=== PATIENT | female | born 1955 | race Caucasian/White ===

== ENCOUNTER 2020-07-13 12:16 | Emergency (ER) | payer MEDICARE, OTHER ==
[2020-07-13 12:26] VITALS: RESP 18
[2020-07-13] MEDS ORDERED: ACETAMINOPHEN TAB 500 MG TAB PO STA (12:36)
--- NOTE | 2020-07-13 13:20 | XR ---
EXAMINATION TYPE: XR wrist complete LT DATE OF EXAM: 07/13/2020 CLINICAL HISTORY: pain TECHNIQUE: Frontal, lateral and oblique images of the left wrist are obtained. COMPARISON: None. FINDINGS: There is no acute fracture/dislocation evident. The joint spaces appear within normal jensen its. Cystic degenerative change of the scaphoid. The overlying soft tissue appears unremarkable. IMPRESSION: There is no acute fracture or dislocation seen. ICD 10 NO FRACTURE, INITIAL EVALUATION
--- NOTE | 2020-07-13 13:35 | ED ---
Upper Extremity HPI - General Chief Complaint: Extremity Injury, Upper Stated Complaint: lt wrist injury Time Seen by Provider: 07/13/20 12:32 Source: patient, RN notes reviewed Mode of arrival: ambulatory Limitations: no limitations - History of Present Illness Initial Comments: 64-year-old female presents emergency Department chief complaint of left wrist pain. Patient states she is currently other rashes tripped and fell complains of bruising swelling to her left wrist. No paresthesias. Patient denies any head injury no loss consciousness no other complaints. - Related Data Allergies Allergy/AdvReac Type Severity Reaction Status Date / Time cefaclor [From Ceclor] Allergy Unknown Verified 07/13/20 12:27 Penicillins Allergy Unknown Verified 07/13/20 12:27 strawberry Allergy Unknown Verified 07/13/20 12:27 Sulfa (Sulfonamide Allergy Unknown Verified 07/13/20 12:27 Antibiotics) tomato Allergy Unknown Verified 07/13/20 12:27 Review of Systems ROS Statement: Those systems with pertinent positive or pertinent negative responses have been documented in the HPI. ROS Other: All systems not noted in ROS Statement are negative. Past Medical History Additional Past Medical History / Comment(s): High cholestrol History of Any Multi-Drug Resistant Organisms: None Reported Past Surgical History: Cholecystectomy Additional Past Surgical History / Comment(s): shoulder surgery (right). thyroid- partial thyroidectomy. Past Psychological History: Anxiety Smoking Status: Current every day smoker Past Alcohol Use History: Occasional Past Drug Use History: None Reported General Exam Limitations: no limitations General appearance: alert, in no apparent distress Head exam: Present: atraumatic, normocephalic, normal inspection Eye exam: Present: normal appearance, PERRL, EOMI. Absent: scleral icterus, conjunctival injection, periorbital swelling Respiratory exam: Present: normal lung sounds bilaterally. Absent: respiratory distress, wheezes, rales, rhonchi, stridor Cardiovascular Exam: Present: regular rate, normal rhythm, normal heart sounds. Absent: systolic murmur, diastolic murmur, rubs, gallop, clicks Extremities exam: Present: other (Left wrist there is moderate swelling and ecchymosis noted no snuffbox tenderness there is distal radius and ulna tenderness neurovascular intact) Course Vital Signs 07/13/20 12:20 Temperature 98.2 F Pulse Rate 92 Respiratory 18 Rate Blood Pressure 185/90 O2 Sat by Pulse 98 Oximetry Medical Decision Making - Medical Decision Making X-rays negative for acute findings as read by radiologist. Patient will be discharged stable condition will follow-up with orthopedics if no improvement. Disposition Clinical Impression: Left wrist sprain Disposition: HOME SELF-CARE Condition: Stable Instructions (If sedation given, give patient instructions): Wrist Injury (ED) Additional Instructions: Please return to the Emergency Department if symptoms worsen or any other concerns. Is patient prescribed a controlled substance at d/c from ED?: No Referrals: Racehal Escobedo MD [Primary Care Provider] - 1-[address] MD [STAFF PHYSICIAN] - 1-2 days Time of Disposition: 13:34
[2020-07-13 13:44] VITALS: BP 175/77; PULSE 86; TEMP 98.1
== END 2020-07-13 13:42 | disposition home or self-care (01) ==
LOC: EC 12:16
DX: S63.502A Unspecified sprain of left wrist, initial encounter (principal); F41.9 Anxiety disorder, unspecified; F17.200 Nicotine dependence, unspecified, uncomplicated; Z88.1 Allergy status to other antibiotic agents; W01.0XXA Fall on same level from slipping, tripping and stumbling without subsequent striking against object, initial encounter
CPT/HCPCS: 99283

== ENCOUNTER 2022-02-13 20:08 | Emergency (ER) | payer MEDICARE, OTHER ==
[2022-02-13 20:21] VITALS: TEMP 97.6
[2022-02-13] MEDS ORDERED: DIPH,PERTUS(ACELL)TETVAC-LF 0.5 ML VIAL IM ONE (20:49)
[2022-02-13] MEDS ORDERED: LIDOCAINE 1%-EPI 1:100,000 20 ML VIAL SQ STA (21:02)
--- NOTE | 2022-02-13 21:03 | ED ---
General Adult HPI - General Chief complaint: Fall Stated complaint: Fall Time Seen by Provider: 02/13/22 20:25 Source: patient, EMS Mode of arrival: EMS Limitations: no limitations - History of Present Illness Initial comments: Dictation was produced using [employer] dictation software. please excuse any grammatical, word or spelling errors. Chief Complaint: 66-year-old female presents to emergency department after fall History of Present Illness: 7-2-hsdg-old female she was brought in by EMS. Patient states she was drinking several amounts of alcohol when she fell. She does not really remember all the details of falling. Patient suffered a laceration to the bridge of her nose. Patient denies any complaints at this time. She does not drink large amounts of alcohol on a regular basis. The ROS documented in this emergency department record has been reviewed and confirmed by me. Those systems with pertinent positive or negative responses have been documented in the HPI. All other systems are other negative and/or noncontributory. PHYSICAL EXAM: General Impression: Alert and oriented x3, not in acute distress, smells of EtOH HEENT: 1cm laceration to the bridge of the nose, extra-ocular movements intact, pupils equal and reactive to light bilaterally, mucous membranes moist. Cardiovascular: Heart regular rate and rhythm Chest: Able to complete full sentences, no retractions, no tachypnea Abdomen: abdomen soft, non-tender, non-distended, no organomegaly Musculoskeletal: Pulses present and equal in all extremities, no peripheral edema Motor: no focal deficits noted Neurological: CN II-XII grossly intact, no focal motor or sensory deficits noted Skin: Intact with no visualized rashes Psych: Normal affect and mood ED course: 66-year-old female presents emergency department for EtOH intoxication and fall. Patient does have signs of facial trauma. Vital Signs upon arrival are within acceptable limits. Laboratory evaluation obtained. CBC, metabolic panel, coag panel is unremarkable. Serum alcohol is 206. Computed tomography scan of the head and C-spine is unremarkable for any acute processes. Pelvis x-rays negative, chest x-ray is negative. Son is at the bedside reports that patient appears to be well. He will take her home. Patient reevaluated bedside at 10:15 PM on been stable medical condition. Laceration was repaired at bedside. Patient be discharged. - Related Data Allergies Allergy/AdvReac Type Severity Reaction Status Date / Time cefaclor [From [facility]] Allergy Unknown Verified 07/13/20 12:27 Penicillins Allergy Unknown Verified 07/13/20 12:27 strawberry Allergy Unknown Verified 07/13/20 12:27 Sulfa (Sulfonamide Allergy Unknown Verified 07/13/20 12:27 Antibiotics) tomato Allergy Unknown Verified 07/13/20 12:27 Review of Systems ROS Statement: Those systems with pertinent positive or pertinent negative responses have been documented in the HPI. ROS Other: All systems not noted in ROS Statement are negative. Past Medical History Past Medical History: GERD/Reflux, Hypertension Additional Past Medical History / Comment(s): High cholestrol History of Any Multi-Drug Resistant Organisms: None Reported Past Surgical History: Cholecystectomy Additional Past Surgical History / Comment(s): shoulder surgery (right). thyroid- partial thyroidectomy. Past Psychological History: Anxiety Smoking Status: Current every day smoker Past Alcohol Use History: Occasional Past Drug Use History: None Reported General Exam Limitations: no limitations Course Vital Signs 02/13/22 20:10 Temperature 97.6 F Pulse Rate 86 Respiratory 20 Rate Blood Pressure 142/47 O2 Sat by Pulse 94 L Oximetry Medical Decision Making - Lab Data Result diagrams: 02/13/22 21:02 02/13/22 21:02 Lab Results 02/13/22 02/13/22 02/13/22 Range/Units 21:02 21:02 21:02 WBC 12.7 H (3.8-10.6) k/uL RBC 4.77 (3.80-5.40) m/uL Hgb 14.6 (11.4-16.0) gm/dL Hct 44.8 (34.0-46.0) % MCV 93.9 (80.0-100.0) fL MCH 30.7 (25.0-35.0) pg MCHC 32.7 (31.0-37.0) g/dL RDW 12.9 (11.5-15.5) % Plt Count 299 (150-450) k/uL MPV 8.8 Neutrophils % 58 % Lymphocytes % 36 % Monocytes % 2 % Eosinophils % 1 % Basophils % 1 % Neutrophils # 7.4 (1.3-7.7) k/uL Lymphocytes # 4.6 (1.0-4.8) k/uL Monocytes # 0.3 (0-1.0) k/uL Eosinophils # 0.2 (0-0.7) k/uL Basophils # 0.1 (0-0.2) k/uL PT 9.8 (9.0-12.0) sec INR 0.9 (<1.2) APTT 20.2 L (22.0-30.0) sec Sodium 141 (137-145) mmol/L Potassium 4.0 (3.5-5.1) mmol/L Chloride 102 (98-107) mmol/L Carbon Dioxide 24 (22-30) mmol/L Anion Gap 15 mmol/L BUN 7 (7-17) mg/dL Creatinine 0.69 (0.52-1.04) mg/dL Est GFR (CKD-EPI)AfAm >90 (>60 ml/min/1.73 sqM) Est GFR (CKD-EPI)NonAf >90 (>60 ml/min/1.73 sqM) Glucose 106 H (74-99) mg/dL Calcium 8.8 (8.4-10.2) mg/dL Serum Alcohol 206 H* mg/dL Disposition Clinical Impression: Alcohol intoxication, Facial laceration Disposition: HOME SELF-CARE Condition: Good Instructions (If sedation given, give patient instructions): Fall Prevention for Older Adults (ED) Additional Instructions: suture removal in 5-7 days Is patient prescribed a controlled substance at d/c from ED?: No Referrals: Racheal Escobedo MD [Primary Care Provider] - 1-2 days Time of Disposition: 22:17
[2022-02-13 21:16] LABS: Basophils # (A) 0.1 k/uL (0-0.2); Basophils % (A) 1 %; Eosinophils # (A) 0.2 k/uL (0-0.7); Eosinophils % (A) 1 %; HCT 44.8 % (34.0-46.0); HGB 14.6 gm/dL (11.4-16.0); Lymphocytes # (A) 4.6 k/uL (1.0-4.8); Lymphocytes % (A) 36 %; MCH 30.7 pg (25.0-35.0); MCHC 32.7 g/dL (31.0-37.0); MCV 93.9 fL (80.0-100.0); Mean Platelet Volume 8.8; Monocytes # (A) 0.3 k/uL (0-1.0); Monocytes % (A) 2 %; Neutrophils # (A) 7.4 k/uL (1.3-7.7); Neutrophils % (A) 58 %; Platelet Count 299 k/uL (150-450); RBC 4.77 m/uL (3.80-5.40); RDW 12.9 % (11.5-15.5); WBC 12.7 k/uL (3.8-10.6)
[2022-02-13 21:22] LABS: African American GFR (CKD) >90 (>60 ml/min/1.73 sqM); Anion Gap 15 mmol/L; Blood Urea Nitrogen 7 mg/dL (7-17); Calcium 8.8 mg/dL (8.4-10.2); Carbon Dioxide 24 mmol/L (22-30); Chloride 102 mmol/L (98-107); Glucose 106 mg/dL (74-99); Non-African American GFR(CKD) >90 (>60 ml/min/1.73 sqM); Sodium 141 mmol/L (137-145)
[2022-02-13 21:26] LABS: Alcohol 206 mg/dL
--- NOTE | 2022-02-13 22:05 | XR ---
EXAMINATION TYPE: XR pelvis AP view DATE OF EXAM: 02/13/2022 9:11 PM INDICATION: Patient age:Female; 66 years old; Reason for study: fall. COMPARISON: None TECHNIQUE: The pelvis was examined in a single projection. FINDINGS: There is no evidence of fracture or dislocation. There is no soft tissue abnormality. No a bnormal calcifications are present. Multilevel degenerative changes of the lower spine. IMPRESSION: No acute osseous pathology.
[2022-02-13 22:06] LABS: INR 0.9 (<1.2); Partial Thromboplastin Time 20.2 sec (22.0-30.0); Prothrombin Time 9.8 sec (9.0-12.0)
--- NOTE | 2022-02-13 22:06 | XR ---
EXAMINATION TYPE: XR chest 1V DATE OF EXAM: 02/13/2022 9:12 PM COMPARISON: None TECHNIQUE: XR chest 1V Portable AP radiograph of the chest. CLINICAL INDICATION:Female, 66 years old with history of fall; FINDINGS: Lungs/Pleura: There is no evidence of pleural effusion, focal consolidation, or pneumothorax. Pulmonary vascularity: Unremarkable. Heart/mediastinum: Cardiomediastinal silhouette is unremarkable. Musculoskeletal: No acute osseous pathology. Distal right clavicle appears surgically absent versus d istal clavicle erosion. IMPRESSION: No acute cardiopulmonary disease/process.
--- NOTE | 2022-02-13 22:09 | CT ---
EXAMINATION TYPE: CT brain cspine wo con CT DLP: 1526.2 mGycm, Automated exposure control for dose reduction was used. DATE OF EXAM: 02/13/2022 9:12 PM COMPARISON: None. CLINICAL INDICATION:Female, 66 years old with history of fall; Fall while intoxicated. Lacerations to face TECHNIQUE: Brain: Multiple axial CT images of the brain were obtained without IV contrast. Cspine: Axial CT images from the skull base to the inferior aspect of T2 we obtained without intraven ous contrast. Coronal and sagittal reformatted images were also reviewed. FINDINGS: Brain: Extra-axial spaces: No abnormal extra-axial fluid collections. Ventricular system: Within normal limits Cerebral parenchyma: No acute intraparenchymal hemorrhage or mass effect. The solis-white junction is well differentiated. Cerebellum: Unremarkable. Mass effect: No evidence of midline shift. Intracranial vasculature: Atherosclerotic calcifications of the intracranial vessels. Soft tissues: Normal. Calvarium/osseous structures: No depressed skull fracture. Paranasal sinuses and mastoid air cells: Clear. Visualized orbits: Bilateral aphakia Cervical spine: Fracture: None. Osseous structures: Multilevel degenerative disc disease changes with endplate spurring and disc oste ophyte complex's. Vertebral alignment: Within normal limits. Spinal canal/Neural Foramina: Disc osteophyte complexes at C5-C6 with at least mild spinal canal sten osis. Facet joint uncovertebral joint arthropathy scattered throughout the cervical spine with varyin g degrees of neural foraminal stenosis. Neck soft tissues: Prevertebral soft tissues are within normal limits. Other: The airway is patent. The lung apices are clear. IMPRESSION: No acute intracranial process. No evidence of cervical spine fracture. Moderate multilevel degenerative disc disease.
[2022-02-13 23:17] VITALS: BP 160/77; PULSE 81; RESP 18
== END 2022-02-13 22:40 | disposition home or self-care (01) ==
LOC: EC 20:08
DX: S01.81XA Laceration without foreign body of other part of head, initial encounter (principal); F10.929 Alcohol use, unspecified with intoxication, unspecified; K21.9 Gastro-esophageal reflux disease without esophagitis; I10 Essential (primary) hypertension; F17.200 Nicotine dependence, unspecified, uncomplicated; Z79.83 Long term (current) use of bisphosphonates; Z79.899 Other long term (current) drug therapy; Z88.1 Allergy status to other antibiotic agents; Z91.018 Allergy to other foods; Z88.2 Allergy status to sulfonamides; Z88.0 Allergy status to penicillin; W18.30XA Fall on same level, unspecified, initial encounter
CPT/HCPCS: 36415; 93005; 80048; 85025; 85610; 85730; 72170; 71045; 72125; 70450; 90715; 99284; 96372; G0480; 80320